=== PATIENT | male | born 1955 | race Caucasian/White ===

== ENCOUNTER 2016-02-24 13:50 | Emergency (ER) | payer BC ==
[2016-02-24] MEDS ORDERED: ASPIRIN 81 MG CHEW TAB ONE (14:18)
[2016-02-24] MEDS ORDERED: Meclizine HCl 25 MG TAB ONE (19:13)
[2016-02-24] MEDS ORDERED: ONDANSETRON 4 MG VIAL ONE (19:13)
[2016-02-24] MEDS ORDERED: SODIUM CHLORIDE 0.9% 1,000 ML ONE (20:39)
== END 2016-02-24 21:20 | disposition home or self-care (01) ==
LOC: ER 13:50
DX: R42 Dizziness and giddiness (principal)
CPT/HCPCS: 36415; 70450; 71010; 80053; 82550; 83735; 84484; 85025; 85610; 85730; 93005; 96374